=== PATIENT | male | born 1985 | race Caucasian/White ===

== ENCOUNTER 2017-04-05 06:11 | Emergency (ER) | payer OTHER ==
[~2017-04-05] VITALS: Ht 188 cm; Wt 74.8 kg
[2017-04-05 07:28] VITALS: BP 141/88
== END 2017-04-05 08:05 | disposition home or self-care (01) ==
LOC: ER 06:16
DX: J20.9 Acute bronchitis, unspecified (principal); F17.210 Nicotine dependence, cigarettes, uncomplicated
CPT/HCPCS: 71020; 82962

== ENCOUNTER 2020-08-21 20:33 | Emergency (ER) | payer OTHER ==
[~2020-08-21] VITALS: Ht 188 cm; Wt 74.8 kg
[2020-08-21 23:57] LABS: Basophils # (auto) 0 10 ^3/uL (0-0.2); Basophils % (auto) 0.6 % (0.0-2.0); Eosinophils # (auto) 0.1 10 ^3/uL (0-0.8); Hematocrit 42.3 % (41.0-53.0); Hemoglobin 14.5 g/dL (13.5-17.5); Lymphocytes % (auto) 25.7 % (10.0-50.0); Mean Corpuscular Hemoglobin 31.5 pg (28.0-32.0); Mean Corpuscular Hgb Conc. 34.3 g/dL (32.0-36.0); Mean Corpuscular Volume 91.6 fL (80.0-100.0); Monocytes # (auto) 0.8 10 ^3/uL (0-1.3); Monocytes % (auto) 10.2 % (0.0-12.0); Neutrophils # (auto) 4.9 10 ^3/uL (1.6-8.6); Neutrophils % (auto) 62.5 % (37.0-80.0); Nucleated Red Blood Cells % 0.3 %; Platelet Count (auto) 221 10^3/uL (140-450); Red Blood Cells 4.62 10^6/uL (4.5-5.90); Red Cell Distribution Width 12.6 % (11.8-14.3); White Blood Cell 7.8 10^3/uL (4.4-10.8)
[2020-08-22] VITALS: BP 91/62
[2020-08-22 00:15] LABS: Alanine Aminotransferase 22 U/L (16-61); Albumin 3.7 g/dL (3.4-5.0); Anion Gap 4 (5-15); Blood Urea Nitrogen 18 mg/dL (7-18); Calcium 8.8 mg/dL (8.5-10.1); Carbon Dioxide 27 mmol/L (21-32); Chloride 106 mmol/L (98-107); Glucose 94 mg/dL (74-106); Magnesium 2.6 mg/dL (1.6-2.6); Sodium 137 mmol/L (136-145)
[2020-08-22 00:21] LABS: Alkaline Phosphatase 51 U/L (45-117); Aspartate Aminotransferase 15 U/L (15-37); Bilirubin, Total 0.6 mg/dL (0.2-1.0); GFR African American 110 mL/min; GFR Non-African American 91 mL/min; Total Protein 6.7 g/dL (6.4-8.2)
== END 2020-08-22 02:30 | disposition home or self-care (01) ==
LOC: ER 20:33
DX: R07.89 Other chest pain (principal); F17.210 Nicotine dependence, cigarettes, uncomplicated
CPT/HCPCS: 36415; 71045; 80053; 83735; 83880; 84484; 85025; 85379

== ENCOUNTER 2020-09-01 10:03 | Emergency (ER) | payer OTHER ==
[~2020-09-01] VITALS: Ht 188 cm; Wt 72.6 kg
[2020-09-01 10:12] VITALS: BP 126/80
[2020-09-01 11:01] LABS: Basophils # (auto) 0.1 10 ^3/uL (0-0.2); Basophils % (auto) 1.1 % (0.0-2.0); Eosinophils # (auto) 0.1 10 ^3/uL (0-0.8); Eosinophils % (auto) 1.2 % (0.0-7.0); Hemoglobin 15.2 g/dL (13.5-17.5); Lymphocytes # (auto) 1.1 10 ^3/uL (0.4-5.4); Lymphocytes % (auto) 23.5 % (10.0-50.0); Mean Corpuscular Hgb Conc. 35.3 g/dL (32.0-36.0); Mean Corpuscular Volume 90.7 fL (80.0-100.0); Monocytes # (auto) 0.5 10 ^3/uL (0-1.3); Neutrophils # (auto) 2.9 10 ^3/uL (1.6-8.6); Neutrophils % (auto) 63.2 % (37.0-80.0); Nucleated Red Blood Cells % 0.1 %; Platelet Count (auto) 243 10^3/uL (140-450); Red Blood Cells 4.75 10^6/uL (4.5-5.90); Red Cell Distribution Width 12.7 % (11.8-14.3); White Blood Cell 4.6 10^3/uL (4.4-10.8)
[2020-09-01 11:02] LABS: Anion Gap 8 (5-15); Blood Urea Nitrogen 11 mg/dL (7-18); Calcium 9.3 mg/dL (8.5-10.1); Carbon Dioxide 25 mmol/L (21-32); Chloride 106 mmol/L (98-107); Glucose 84 mg/dL (74-106); Potassium 4.8 mmol/L (3.5-5.1); Sodium 139 mmol/L (136-145)
[2020-09-01 11:07] LABS: BUN/Creatinine Ratio 11.2; GFR African American 112 mL/min; GFR Non-African American 93 mL/min
== END 2020-09-01 12:00 | disposition home or self-care (01) ==
LOC: ER 10:03
DX: R07.89 Other chest pain (principal); F17.210 Nicotine dependence, cigarettes, uncomplicated
CPT/HCPCS: 36415; 71046; 80048; 84484; 85025; 93005

== ENCOUNTER 2021-09-14 14:22 | Emergency (ER) | payer MEDICAID ==
[~2021-09-14] VITALS: Ht 188 cm; Wt 79.4 kg
[2021-09-14 14:29] VITALS: BP 137/84
[2021-09-14] MEDS ORDERED: PRED20TA2 PO (20:18)
[2021-09-14] MEDS ORDERED: [UNRECOGNIZED DRUG - CODE] OP (20:18)
[2021-09-14] MEDS ORDERED: ACYC1CAP23 PO (20:18)
== END 2021-09-14 20:24 | disposition home or self-care (01) ==
LOC: ER 14:22
DX: G51.0 Bell's palsy (principal); F17.210 Nicotine dependence, cigarettes, uncomplicated
CPT/HCPCS: 70450

== ENCOUNTER 2024-10-23 14:58 | Emergency (ER) | payer MEDICAID ==
[~2024-10-23] VITALS: Ht 188 cm; Wt 71.3 kg
[~2024-10-23 14:58] MED LIST: ACYC200C22 PO; PRED20TA2 PO; [UNRECOGNIZED DRUG - CODE] OP
[2024-10-23 15:12] VITALS: BP 143/95; PULSE 92; RESP 18; O2SAT 97
[2024-10-23] MEDS ORDERED: KETOROLAC TROMETH 60MG/2ML VIAL IM ONE (15:30)
--- NOTE | 2024-10-23 15:32 | ED.PDOC ---
Back pain HPI HPI Comments 39 y/o M, presents to the ED for CC of lower back pain. Patient states, that he has been experiencing sciatica pain [id number]. Patient relays, pain began following a work injury. Patient denies body-aches, musculoskeletal pain. pain with execration, or pain while bending at the hips. No other symptoms or modifying factors at this time. Patient denies any muscle atrophy or numbness to the groin. Chief Complaint: Back Pain Time Seen by MD: 03:25 Primary Care Provider: FLAKITA Reviewed Notes: Nurses Notes, Medications, Allergies Allergies: Coded Allergies: NO KNOWN ALLERGIES (Unverified , 04/05/17) Home Meds Active Scripts Uekjkrwanspirizq-Csueqjm-Rzgac (EYE DROPS MAXIMUM RELIEF) Max Relf Donal, 1 RELF OP BID for 7 Days, #1 DROP Prov:ARMADNO WILLARD MD 09/14/21 Prednisone (Prednisone) 20 Mg Tab, 20 MG PO BID for 5 Days, #10 MG Prov:ARMANDO WILLARD MD 09/14/21 Acyclovir (Acyclovir) 200 Mg Cap, 200 MG PO 5XD for 7 Days, #35 TAB Prov:ARMANDO WILLARD MD 09/14/21 Information Source: Patient Mode of Arrival: Ambulatory Timing: Months Duration: Since onset Location of Back pain: (R) Lumbar, (L) Lumbar Severity: None Prehospital treatment: None Circumstance: Work Related History of: None Associated signs and symptoms: None Past Medical History PAST MEDICAL HISTORY: Denies Past Medical History (Other): Patient states a history of low back concerns. Surgical History: Denies all surgeries Family History Family History: Reviewed,noncontributory to illness Social History Smoker: Cigarettes Alcohol: Denies ETOH Use Drugs: Marijuana Lives In: Home Constitutional: denies: chills, diaphoresis, fatigue, fever, malaise, sweats, weakness, others EENTM: denies: blurred vision, double vision, ear bleeding, ear discharge, ear drainage, ear pain, ear ringing, eye pain, eye redness, hearing loss, mouth pain, mouth swelling, nasal discharge, nose bleeding, nose congestion, nose pain, photophobia, tearing, throat pain, throat swelling, voice changes, others Respiratory: denies: cough, hemoptysis, orthopnea, SOB at rest, shortness of breath, SOB with excertion, stridor, wheezing, others Cardiovascular: denies: chest pain, dizzy spells, diaphoresis, Dyspnea on exertion, edema, irregular heart beat, left arm pain, lightheadedness, palpitations, PND, syncope, others Gastrointestinal: denies: abdomen distended, abdominal pain, blood streaked bowels, constipated, diarrhea, dysphagia, difficulty swallowing, hematemesis, melena, nausea, poor appetite, poor fluid intake, rectal bleeding, rectal pain, vomiting, others Genitourinary: denies: burning, dysuria, flank pain, frequency, hematuria, incontinence, penile discharge, penile sore, pain, testicle pain, testicle swelling, urgency, others Neurological: denies: dizziness, fainting, headache, left sided numbness, left sided weakness, numbness, paresthesia, pre-existing deficit, right sided numbness, right sided weakness, seizure, speech problems, tingling, tremors, weakness, others Musculoskeletal: reports: back pain; denies: gout, joint pain, joint swelling, muscle pain, muscle stiffness, neck pain, others Integumetry: denies: bruises, change in color, change in hair/nails, dryness, laceration, lesions, lumps, rash, wounds, others Hematologic/Lymphatic: denies: anemia, blood clots, easy bleeding, easy bruising, swollen glands, others Endocrine: denies: excessive hunger, excessive sweating, excessive thirst, excessive urination, flushing, intolerance to cold, intolerance to heat, unexplained weight gain, unexplained weight loss, others Psychiatric: denies: anxiety, bipolar disorder, depression, hopeless, panic disorder, schizophrenia, sleepless, suicidal, others All Other Systems: Reviewed and Negative Physical Exam General Appearance: Moderate Distress (Due to low back pain concerns.), Normal HEENT: Normal ENT Inspection, Pharynx Normal, TMs Normal Neck: Full Range of Motion, Non-Tender, Normal, Normal Inspection Respiratory: Chest Non-Tender, Lungs Clear, No Accessory Muscle Use, No Respiratory Distress, Normal Breath Sounds Cardiovascular: No Edema, No JVD, No Murmur, No Gallop, Normal Peripheral Pulses, Regular Rate/Rhythm Breast Exam: Deferred Gastrointestinal: No Organomegaly, Non Tender, No Pulsatile Mass, Normal Bowel Sounds, Soft Genitalia: Deferred Pelvic: Deferred Rectal: Deferred Extremities: No calf tenderness, Normal capillary refill, Normal inspection, Normal range of motion, Non-tender, No pedal edema Musculoskeletal : Location: Bilateral Extremity Location: Back (Diffuse bilateral lumbar tenderness to palpation throughout. No definitive signs of trauma. Moderate hypertonicity appreciated. Moderate reduced range of motion in all directions. Patient denies any saddle paresthesia. Bilateral distal neurovascularly intact.) Apperance: Normal Neurologic: Alert, rail grinder II-XII nml as Tested, No Motor Deficits, Normal Affect, Normal Mood, No Sensory Deficits Cerebellar Function: Normal Reflexes: Normal Skin: Dry, Normal Color, Warm Lymphatic: No Adenopathy Was a procedure done? Was a procedure done?: No Back Pain Differential Dx Differential Diagnosis: Musculoskeletal Pain, Other (Degenerative disc disease of the lumbar spine, sciatica, low back pain, scoliosis) X-Ray, Labs, Meds, VS Vital Signs Date Time Temp Pulse Resp B/P (MAP) Pulse Ox O2 Delivery O2 Flow Rate FiO2 10/23/24 15:12 98.9 92 18 143/95 (111) 97 X-Ray, Labs, Meds, VS Comment All studies performed the ED were evaluated by me personally. Imaging studies confirmed a levoscoliosis of the lumbar spine. I did not see definitive degenerative disc disease. Patient may be suffering some neuropathy due to his levoscoliosis. Advised patient utilize medication as needed , utilize ice therapy and additionally, follow up with the primary care provider for continued conversation is related to low back pain issues. Time of 1ST Reevaluation: 15:58 Reevaluation 1ST: Improved Consultation: PCP Patient Education/Counseling: Diagnosis, Treatment Family Education/Counseling: Diagnosis, Treatment, No Family Present Departure 1 Departure Time of Disposition: 15:59 Impression: Primary Impression: Levoscoliosis of lumbar spine Additional Impression: Low back pain Disposition: 01 HOME / SELF CARE / HOMELESS Condition: Stable Additional Instructions: Advised patient utilize medication as needed for symptomatic relief as well as ice therapy. Patient should follow up with the primary care provider for discussions related to his levoscoliosis concerns. e-Prescriptions Hydrocodone-Acetaminophen (Hydrocodone Bitartrate/AC 5-325 mg) 1 Tab Tab 1 TAB PO Q6HP PRN, #20 TAB Prov: NOVA GARCIA PAC 10/23/24 Cyclobenzaprine Hcl (Cyclobenzaprine Hcl) 10 Mg Tab 10 MG PO Q8HP PRN, #15 TAB Prov: NOVA GARCIA PAC 10/23/24 Ibuprofen Micronized (Ibuprofen) 800 Mg Tab 800 MG PO Q8HP PRN, #30 TAB Prov: NOVA GARCIA PAC 10/23/24 Discharged With: Self, Friend Critical Care Note Critical Care Time?: No Stability Stability form required: No Heart Score Heart Score: Heart Score Response (Comments) Value History N/A 0 EKG N/A 0 Age N/A 0 Risk Factors N/A 0 Troponin N/A 0 Total 0 I personally scribed for NOVA GARCIA PAC ([email or web address]) on 10/23/24 at 15:32. Electronically submitted by Malka Carcamo ([email or web address]). NOVA GARCIA PAC Oct 23, 2024 15:32
--- NOTE | 2024-10-23 15:46 | DVH ---
X-ray lumbar spine Technique: AP and lateral views INDICATION: Low back pain FINDINGS: Mild levoscoliosis. Lumbar vertebrae normal in height. Disc spaces preserved. No spondyl olisthesis IMPRESSION: 1. No acute bony pathology. Mild levoscoliosis
[2024-10-23] MEDS ORDERED: HYDR-4902 PO (16:00)
[2024-10-23] MEDS ORDERED: IBUP-1455 PO (16:00)
[2024-10-23] MEDS ORDERED: CYCL-839 PO (16:00)
== END 2024-10-23 18:24 | disposition home or self-care (01) ==
LOC: ER 14:58
DX: M41.86 Other forms of scoliosis, lumbar region (principal); M25.552 Pain in left hip; F12.10 Cannabis abuse, uncomplicated; M25.551 Pain in right hip; F17.210 Nicotine dependence, cigarettes, uncomplicated; Z79.52 Long term (current) use of systemic steroids
CPT/HCPCS: 72100